=== PATIENT | male | born 1985 | race Two or more races ===

== ENCOUNTER → 2023-01-09 | Outpatient (BNVA) | payer BC, SELFPAY | END | disposition home or self-care (01) | PROVIDERS: PCP Family Medicine; Referring Provider Family Medicine; Visit Provider Physician Assistant | DX: N40.1 Benign prostatic hyperplasia with lower urinary tract symptoms (principal); N32.81 Overactive bladder | CPT/HCPCS: Q3014 ==

== ENCOUNTER → 2024-01-22 | Outpatient (CLI) | payer BC, SELFPAY ==
[2024-01-22 17:30] LABS: Basophils % (Auto) 1 % (0-2.5); Eosinophils % (Auto) 1 % (0-10); Hematocrit 35.1 % (41.0-53.0); Hemoglobin 11.5 g/dL (13.5-16.0); Immature Granulocytes % (Auto) 1 % (0-0); Immature Granulocytes Auto 0.01 Thou/mm3 (0.00-0.00); Lymphocytes # (Auto) 0.5 Thou/mm3 (1.0-4.8); Lymphocytes % (Auto) 23 % (10-50); Mean Corpuscular HGB Conc 32.8 g/dl (31.0-37.0); Mean Corpuscular Hemoglobin 33.3 pg (25.0-35.0); Mean Corpuscular Volume 102 fL (80-100); Monocytes # (Auto) 0.2 Thou/mm3 (0.0-0.8); Monocytes % (Auto) 8 % (0-12); Neutrophils # (Auto) 1.4 Thou/mm3 (1.8-7.7); Neutrophils % (Auto) 66 % (37-80); Nucleated Red Blood Cell % 0 /100 WBC (0); Platelet Count 101 Thou/mm3 (140-440); RDW Standard Deviation 60.6 fL (35.1-43.9); Red Blood Count 3.45 Miln/mm3 (4.50-5.90)
[2024-01-22 17:42] LABS: Alanine Aminotransferase 78 U/L (10-49); Albumin, Serum 3.8 gm/dL (3.5-5.0); Albumin/Globulin Ratio 0.9 (1.2-2.2); Alkaline Phosphatase 102 U/L (46-116); Anion Gap 5 (7-16); Aspartate Amino Transferase 64 U/L (0-34); BUN/Creatinine Ratio 13 Ratio (12-20); Bilirubin,Total 0.5 mg/dL (0.3-1.2); Blood Urea Nitrogen 10 mg/dL (9-23); Calcium 8.7 mg/dL (8.3-10.6); Calcium (Corrected) 8.9 mg/dL (8.5-10.1); Carbon Dioxide 26.9 mMol/L (20.0-31.0); Chloride 104 mMol/L (98-107); Creatinine (Component) 0.8 mg/dL (0.6-1.3); Globulin 4.4 gm/dL (2.3-3.5); Glucose 127 mg/dL (74-106); Osmolality,Calculated 272 (275-295); Potassium 3.8 mMol/L (3.4-5.1); Sodium 136 mMol/L (136-145); Total Protein 8.2 gm/dL (5.7-8.2); eGFR > 60 See Note
[2024-01-22 17:46] LABS: Folate 11.79 ng/mL (>5.38); Vitamin B12 512 pg/mL (211-911); White Blood Count 2.1 Thou/mm3 (3.8-10.6)
[2024-01-22 18:42] LABS: Ferritin 185 ng/mL (10.5-307.3); Total Iron Binding Capacity 310 mcg/dL (250-425)
[2024-01-22 18:51] LABS: Iron 124 mcg/dL (65-175); Percent Iron Saturation 40 % (20-55); Unsaturated Iron Binding 186 (225-295)
== END | disposition home or self-care (01) ==
LOC: SCTO 16:07
PROVIDERS: PCP Family Medicine; Referring Provider Internal Medicine Hematology & Oncology; Visit Provider Internal Medicine Hematology & Oncology
DX: R79.0 Abnormal level of blood mineral (principal)
CPT/HCPCS: 36415; 80053; 82607; 82728; 82746; 83540; 83550; 85025

== ENCOUNTER 2024-01-23 15:42 | Outpatient (RCR) | payer BC, SELFPAY | END 2024-02-16 23:59 | disposition home or self-care (01) | LOC: SCTC 15:42 | PROVIDERS: PCP Family Medicine; Referring Provider Nurse Practitioner Family; Visit Provider Nurse Practitioner Family | DX: R94.5 Abnormal results of liver function studies (principal); R79.0 Abnormal level of blood mineral; R04.0 Epistaxis; R12 Heartburn; E66.9 Obesity, unspecified; Z68.41 Body mass index [BMI] 40.0-44.9, adult; F10.10 Alcohol abuse, uncomplicated | CPT/HCPCS: 99212; G0463 ==

== ENCOUNTER → 2024-02-11 | Outpatient (CLI) | payer BC, SELFPAY ==
--- NOTE | 2024-02-11 07:15 | XR_ITS ---
Examination: Abdomen sonogram, complete Date and time of exam: February 11, 2024 0729 hours INDICATIONS: Right upper abdominal pain beginning 6 months ago. Technique: Multiple real-time grayscale transabdominal sonographic images of the abdomen have been obtained. Findings: Negative for gallstones Gallbladder wall 0.4 cm no edema Common bile duct 0.2 cm Pancreatic head 4.2 cm Mid and distal aorta visualized not enlarged Hepatomegaly 19.6 cm fatty infiltration mildly lobular contour Normal hepatopedal portal venous flow Patent IVC Right kidney 12.1 x 6.5 x 6.0 cm cortex 1.9 cm Left kidney 14.0 x 5.5 x 5.5 cm cortex 2.0 cm Mild renal parenchymal scar formation Splenomegaly 19.7 cm IMPRESSION: Borderline thickening gallbladder wall, clinical correlation advised Prominent pancreatic head 4.2 cm, consider CT scan abdomen pelvis post intravenous contrast follow-up Suspicious for cirrhosis Prominent splenomegaly
== END | disposition home or self-care (01) ==
LOC: CDIM 07:02
PROVIDERS: PCP Internal Medicine; Referring Provider Nurse Practitioner Family; Visit Provider Nurse Practitioner Family
DX: K82.8 Other specified diseases of gallbladder (principal); R16.1 Splenomegaly, not elsewhere classified; K86.89 Other specified diseases of pancreas
CPT/HCPCS: 76700

== ENCOUNTER → 2024-02-26 | Outpatient (CLI) | payer BC, SELFPAY ==
[2024-02-26 17:37] LABS: Basophils % (Auto) 1 % (0-2.5); Eosinophils % (Auto) 0 % (0-10); Hematocrit 33.7 % (41.0-53.0); Hemoglobin 11.3 g/dL (13.5-16.0); Immature Granulocytes % (Auto) 1 % (0-0); Immature Granulocytes Auto 0.02 Thou/mm3 (0.00-0.00); Lymphocytes # (Auto) 0.4 Thou/mm3 (1.0-4.8); Lymphocytes % (Auto) 20 % (10-50); Mean Corpuscular HGB Conc 33.5 g/dl (31.0-37.0); Mean Corpuscular Hemoglobin 33.3 pg (25.0-35.0); Mean Corpuscular Volume 99 fL (80-100); Monocytes # (Auto) 0.2 Thou/mm3 (0.0-0.8); Monocytes % (Auto) 9 % (0-12); Neutrophils # (Auto) 1.4 Thou/mm3 (1.8-7.7); Neutrophils % (Auto) 68 % (37-80); Nucleated Red Blood Cell % 0 /100 WBC (0); Platelet Count 84 Thou/mm3 (140-440); RDW Standard Deviation 59.3 fL (35.1-43.9); Red Blood Count 3.39 Miln/mm3 (4.50-5.90)
[2024-02-26 18:02] LABS: Alanine Aminotransferase 91 U/L (10-49); Albumin, Serum 3.8 gm/dL (3.5-5.0); Albumin/Globulin Ratio 0.9 (1.2-2.2); Alkaline Phosphatase 100 U/L (46-116); Anion Gap 6 (7-16); Aspartate Amino Transferase 77 U/L (0-34); BUN/Creatinine Ratio 10 Ratio (12-20); Bilirubin,Total 0.6 mg/dL (0.3-1.2); Blood Urea Nitrogen 12 mg/dL (9-23); Calcium 8.8 mg/dL (8.3-10.6); Chloride 102 mMol/L (98-107); Creatinine (Component) 1.2 mg/dL (0.6-1.3); Globulin 4.2 gm/dL (2.3-3.5); Glucose 112 mg/dL (74-106); Osmolality,Calculated 270 (275-295); Potassium 3.9 mMol/L (3.4-5.1); Sodium 135 mMol/L (136-145); eGFR > 60 See Note
== END | disposition home or self-care (01) ==
LOC: SCTO 16:10
PROVIDERS: PCP Internal Medicine; Referring Provider Nurse Practitioner Family; Visit Provider Nurse Practitioner Family
DX: R79.0 Abnormal level of blood mineral (principal)
CPT/HCPCS: 36415; 80053; 82105; 85025

== ENCOUNTER 2024-02-28 15:34 | Outpatient (RCR) | payer BC, SELFPAY | END 2024-03-18 23:59 | disposition home or self-care (01) | LOC: SCTC 15:34 | PROVIDERS: PCP Internal Medicine; Referring Provider Internal Medicine; Visit Provider Nurse Practitioner Family | DX: R94.5 Abnormal results of liver function studies (principal); R79.0 Abnormal level of blood mineral; R04.0 Epistaxis; R12 Heartburn; E66.9 Obesity, unspecified; Z68.41 Body mass index [BMI] 40.0-44.9, adult; F10.10 Alcohol abuse, uncomplicated | CPT/HCPCS: 99212; G0463 ==

== ENCOUNTER → 2024-04-02 | Outpatient (CLI) | payer BC, SELFPAY ==
[2024-04-02 17:02] LABS: Glucose Estimated Average 134 mg/dL (80-131); Hemoglobin A1C 6.3 % Hgb (4.8-6.0)
[2024-04-02 17:13] LABS: Albumin, Serum 3.7 gm/dL (3.5-5.0); Anion Gap 8 (7-16); BUN/Creatinine Ratio 13 Ratio (12-20); Blood Urea Nitrogen 10 mg/dL (9-23); Calcium 8.8 mg/dL (8.3-10.6); Carbon Dioxide 25.3 mMol/L (20.0-31.0); Chloride 105 mMol/L (98-107); Creatinine (Component) 0.8 mg/dL (0.6-1.3); Glucose 121 mg/dL (74-106); Osmolality,Calculated 275 (275-295); Phosphorous 2.6 mg/dL (2.4-5.1); Potassium 3.8 mMol/L (3.4-5.1); Sodium 138 mMol/L (136-145); eGFR > 60 See Note
== END | disposition home or self-care (01) ==
LOC: COPL 15:54
PROVIDERS: PCP Internal Medicine; Referring Provider Internal Medicine; Visit Provider Internal Medicine
DX: Z00.00 Encounter for general adult medical examination without abnormal findings (principal); E66.9 Obesity, unspecified
CPT/HCPCS: 36415; 80069; 83036

== ENCOUNTER → 2024-04-10 | Outpatient (CLI) | payer BC, SELFPAY ==
--- NOTE | 2024-04-10 10:30 | XR_ITS ---
Examination: CT abdomen with intravenous contrast CT pelvis with intravenous contrast 2-D coronal reconstructions 2-D sagittal reconstructions Date and time of exam:April 10, 2024 1036 hours INDICATIONS: Abnormal level of blood minimal, right upper abdominal pain one year COMPARISON: June 01, 2022. CTDI: vol (mGy) 12.5 DLP: (mGycm) 899 Technique: Multiple axial sections of the abdomen and pelvis have been obtained. 64 slice high-resolution scanner used. 3 mm axial sections have been obtained, post intravenous injection 60 cc [id number]-370 2-D sagittal, coronal reconstructions obtained. Low dose protocols were performed. One or more of the following dose reduction techniques were used; automated exposure control, adjustment of the mA and/or KV according to patient size, use of iterative reconstruction technique. Findings: Liver mildly irregular in contour Prominent splenomegaly No gallstones No pancreatic or adrenal mass No renal or ureteral calculi, no hydronephrosis Aorta normal size No pericecal inflammatory change No bowel obstruction or diverticulitis Urinary bladder intact No prostatomegaly Moderate osteopenia IMPRESSION: Primary hepatocellular disease Prominent splenomegaly No abdominal or pelvic lymphadenopathy
== END | disposition home or self-care (01) ==
PROVIDERS: PCP Internal Medicine; Referring Provider Internal Medicine; Visit Provider Nurse Practitioner Family
DX: K76.9 Liver disease, unspecified (principal); R16.1 Splenomegaly, not elsewhere classified
CPT/HCPCS: 74177; A4649; Q9967

== ENCOUNTER → 2024-04-15 | Outpatient (CLI) | payer BC, SELFPAY ==
[2024-04-15 17:47] LABS: INR 1.1 (0.9-1.3); Prothrombin Time 12.3 Seconds (9.0-12.2)
[2024-04-15 18:20] LABS: Alanine Aminotransferase 57 U/L (10-49); Albumin, Serum 4.1 gm/dL (3.5-5.0); Alkaline Phosphatase 107 U/L (46-116); Aspartate Amino Transferase 45 U/L (0-34); Bilirubin,Direct 0.3 mg/dL (0.0-0.3); Bilirubin,Total 0.6 mg/dL (0.3-1.2); Total Protein 8.6 gm/dL (5.7-8.2)
[2024-04-15 19:00] LABS: Hepatitis A Antibody IgM Non Reactive (Non React); Hepatitis B Surface Antigen Non Reactive (Non React)
[2024-04-15 19:02] LABS: Hepatitis B Core Antibody IgM Non Reactive (Non React); Hepatitis C Antibody Non Reactive (Non React)
[2024-04-15 20:05] LABS: Ferritin 163 ng/mL (10.5-307.3); Iron 145 mcg/dL (65-175); Percent Iron Saturation 43 % (20-55); Total Iron Binding Capacity 335 mcg/dL (250-425); Unsaturated Iron Binding 190 (225-295)
[2024-04-21 06:39] LABS: ACTH, Plasma* 16 pg/mL (6-50)
[2024-04-24 06:57] LABS: ANA Screen, IFA NEGATIVE (NEGATIVE)
[2024-04-24 06:58] LABS: Alpha-1-Antitrypsin* 151 mg/dL (83-199); Ceruloplasmin* 18 mg/dL (14-30); Copper* 82 mcg/dL (70-175); Mitochondrial Ab NEGATIVE (NEGATIVE)
== END | disposition home or self-care (01) ==
LOC: COPL 16:50
PROVIDERS: PCP Internal Medicine; Referring Provider Specialist; Visit Provider Specialist
DX: R94.5 Abnormal results of liver function studies (principal)
CPT/HCPCS: 36415; 80074; 80076; 82024; 82103; 82105; 82390; 82525; 82728; 83540; 83550; 85610; 86038; 86255

== ENCOUNTER → 2024-05-06 | Outpatient (CLI) | payer BC, SELFPAY ==
[2024-05-06 18:41] LABS: Basophils % (Auto) 0 % (0-2.5); Eosinophils % (Auto) 0 % (0-10); Hemoglobin 11.2 g/dL (13.5-16.0); Immature Granulocytes % (Auto) 1 % (0-0); Immature Granulocytes Auto 0.02 Thou/mm3 (0.00-0.00); Immature Reticulocyte Fraction 30.7 % (2.3-13.4); Lymphocytes # (Auto) 0.7 Thou/mm3 (1.0-4.8); Lymphocytes % (Auto) 28 % (10-50); Mean Corpuscular HGB Conc 33.9 g/dl (31.0-37.0); Mean Corpuscular Hemoglobin 33.2 pg (25.0-35.0); Mean Corpuscular Volume 98 fL (80-100); Monocytes # (Auto) 0.2 Thou/mm3 (0.0-0.8); Monocytes % (Auto) 7 % (0-12); Neutrophils # (Auto) 1.5 Thou/mm3 (1.8-7.7); Neutrophils % (Auto) 64 % (37-80); Nucleated Red Blood Cell % 0 /100 WBC (0); Platelet Count 109 Thou/mm3 (140-440); RDW Standard Deviation 60.5 fL (35.1-43.9); Red Blood Count 3.37 Miln/mm3 (4.50-5.90); Reticulocyte % (Auto) 3.2 % (0.5-1.5); Reticulocyte Absolute Auto 108.2 Biln/L (25.0-75.0); Reticulocyte Hgb Content 36.8 pg (28.0-35.0)
[2024-05-06 18:54] LABS: Alanine Aminotransferase 62 U/L (10-49); Albumin, Serum 3.5 gm/dL (3.5-5.0); Albumin/Globulin Ratio 0.8 (1.2-2.2); Alkaline Phosphatase 100 U/L (46-116); Anion Gap 10 (7-16); Aspartate Amino Transferase 44 U/L (0-34); BUN/Creatinine Ratio 13 Ratio (12-20); Bilirubin,Total 0.6 mg/dL (0.3-1.2); Blood Urea Nitrogen 12 mg/dL (9-23); Calcium 8.6 mg/dL (8.3-10.6); Carbon Dioxide 23.1 mMol/L (20.0-31.0); Chloride 104 mMol/L (98-107); Creatinine (Component) 0.9 mg/dL (0.6-1.3); Globulin 4.3 gm/dL (2.3-3.5); Glucose 173 mg/dL (74-106); Osmolality,Calculated 277 (275-295); Potassium 3.6 mMol/L (3.4-5.1); Sodium 137 mMol/L (136-145); Total Protein 7.8 gm/dL (5.7-8.2); eGFR > 60 See Note
[2024-05-06 18:55] LABS: Folate 10.82 ng/mL (>5.38); Vitamin B12 518 pg/mL (211-911)
[2024-05-06 19:07] LABS: White Blood Count 2.3 Thou/mm3 (3.8-10.6)
[2024-05-06 19:44] LABS: Ferritin 163 ng/mL (10.5-307.3); Iron 104 mcg/dL (65-175); Percent Iron Saturation 33 % (20-55); Total Iron Binding Capacity 308 mcg/dL (250-425); Unsaturated Iron Binding 204 (225-295)
== END | disposition home or self-care (01) ==
PROVIDERS: PCP Internal Medicine; Referring Provider Nurse Practitioner Family; Visit Provider Nurse Practitioner Family
DX: R79.0 Abnormal level of blood mineral (principal)
CPT/HCPCS: 36415; 80053; 82607; 82728; 82746; 83540; 83550; 85025; 85046

== ENCOUNTER 2024-05-12 15:32 | Outpatient (RCR) | payer BC, SELFPAY | END 2024-05-16 23:59 | disposition home or self-care (01) | LOC: SCTC 15:32 | PROVIDERS: PCP Internal Medicine; Referring Provider Internal Medicine; Visit Provider Nurse Practitioner Family | DX: Z71.2 Person consulting for explanation of examination or test findings (principal); D75.9 Disease of blood and blood-forming organs, unspecified; D72.819 Decreased white blood cell count, unspecified; D64.9 Anemia, unspecified; D69.6 Thrombocytopenia, unspecified; K70.0 Alcoholic fatty liver; R16.1 Splenomegaly, not elsewhere classified; F10.10 Alcohol abuse, uncomplicated; F14.11 Cocaine abuse, in remission | CPT/HCPCS: 99212; G0463 ==

== ENCOUNTER 2024-05-19 07:55 | Day surgery (SDC) | payer BC, SELFPAY ==
--- NOTE | 2024-05-16 11:56 | EKG_ITS ---
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
[2024-05-16 13:29] LABS: INR 1.1 (0.9-1.3); Partial Thromboplastin Time 28.4 Seconds (22.0-36.0); Prothrombin Time 12.1 Seconds (9.0-12.2)
[2024-05-16 13:30] LABS: Alanine Aminotransferase 45 U/L (10-49); Albumin, Serum 3.7 gm/dL (3.5-5.0); Albumin/Globulin Ratio 0.9 (1.2-2.2); Alkaline Phosphatase 96 U/L (46-116); Anion Gap 8 (7-16); Aspartate Amino Transferase 48 U/L (0-34); BUN/Creatinine Ratio 16 Ratio (12-20); Bilirubin,Total 0.7 mg/dL (0.3-1.2); Blood Urea Nitrogen 13 mg/dL (9-23); Calcium 8.6 mg/dL (8.3-10.6); Calcium (Corrected) 8.8 mg/dL (8.5-10.1); Carbon Dioxide 24.2 mMol/L (20.0-31.0); Chloride 107 mMol/L (98-107); Creatinine (Component) 0.8 mg/dL (0.6-1.3); Globulin 4.2 gm/dL (2.3-3.5); Glucose 119 mg/dL (74-106); Osmolality,Calculated 278 (275-295); Sodium 139 mMol/L (136-145); Total Protein 7.9 gm/dL (5.7-8.2); eGFR > 60 See Note
[2024-05-16 13:44] VITALS: BMI 41.8
[2024-05-19 08:27] VITALS: BP 139/78; PULSE 83; RESP 15; TEMP 36.4; O2SAT 98; BMI 42.0
[2024-05-19] MEDS: RINGERS LACTATED 1000 ML 1,000 ML 20 ML IV (09:46)
[2024-05-19 10:14] VITALS: BP 139/90; PULSE 94; RESP 20; TEMP 37; O2SAT 93
[2024-05-19 10:24] VITALS: BP 122/84; PULSE 87; RESP 21; O2SAT 95
[2024-05-19 10:34] VITALS: BP 124/84; PULSE 86; RESP 20; O2SAT 96
[2024-05-19 10:44] VITALS: BP 129/83; PULSE 83; RESP 21; O2SAT 98
--- NOTE | 2024-05-19 11:29 | SUR.PHASEII ---
1045 Pt more awake and alert. Denies pain, N/V or difficulty swallowing. Abd remains soft. Cleve PO fluids. 1110 Pt assessment unchanged. No complaints. Amb with steady gait. Able to dress self. Pt and sister given dc instructions. Aware of new prescriptions, phoned into [facility], by Dr Yu. Both state understanding. Pt meets dc criteria-to home.
== END 2024-05-19 11:10 | disposition home or self-care (01) ==
PROVIDERS: PCP Internal Medicine; Referring Provider Specialist; Visit Provider Specialist
PROC: (CPT 43239; principal; 2024-05-19 09:00)
DX: I85.10 Secondary esophageal varices without bleeding (principal); K29.70 Gastritis, unspecified, without bleeding; Z01.812 Encounter for preprocedural laboratory examination; K74.60 Unspecified cirrhosis of liver
CPT/HCPCS: 43244; 36415; 80053; 85610; 85730; 93005; A4649; J7120

== ENCOUNTER 2024-06-30 09:00 | Day surgery (SDC) | payer BC, SELFPAY ==
[2024-06-27 14:41] VITALS: BMI 40.8
[2024-06-30] VITALS (9 sets, daily range): BP systolic 120–143; BP diastolic 66–88; PULSE 73–91; RESP 14–21; TEMP 36.4–36.6; O2SAT 95–100; BMI 40.8
[2024-06-30] MEDS: fentaNYL CIT INJ 50 mCg/ML AMP 2ML (ASD USE ONLY) IV (11:14)
[2024-06-30] MEDS: SODIUM CHLORIDE 0.9% 500 ML 500 ML 20 ML IV (11:14)
[2024-06-30] MEDS: MIDAZOLAM INJ 1 MG/ML VIAL 2 ML (ASD USE ONLY) 2 MG IV (11:14)
[2024-06-30] MEDS: DiphenhydrAMINE INJ 50 MG/ML VIAL 25 MG IV (11:14)
== END 2024-06-30 12:45 | disposition home or self-care (01) ==
PROVIDERS: PCP Internal Medicine; Referring Provider Specialist; Visit Provider Specialist
PROC: (CPT 43239; principal; 2024-06-30 11:00)
DX: I85.00 Esophageal varices without bleeding (principal); K76.6 Portal hypertension; I85.10 Secondary esophageal varices without bleeding; K70.9 Alcoholic liver disease, unspecified; D69.59 Other secondary thrombocytopenia
CPT/HCPCS: 43244; A4649; J1200; J2250; J3010; J7040

== ENCOUNTER 2024-07-02 12:06 | Outpatient (RCR) | payer BC, SELFPAY ==
--- NOTE | 2024-07-02 12:30 | XR_ITS ---
Examination: GAYE, hepatobiliary radioisotope scan Gallbladder ejection fraction study. Date and time of exam: July 02, 2024 1222 hours INDICATIONS: Upper abdominal pain beginning 18 months ago heartburn reflux Technique: 6.2 mCi of 99M Hepatolite administered. Serial imaging then obtained from immediate through 60 minutes. 2.8 mcg selective catheter Kinevac administered for gallbladder ejection fraction study. Findings: Radioisotope activity within the liver is reasonably homogenous. Gallbladder, common bile duct small bowel activity noted Impression: Gallbladder activity Abnormal gallbladder ejection fraction, 10%, normal greater than 35%
== END 2024-07-07 23:59 | disposition home or self-care (01) ==
LOC: SNUC 12:06
PROVIDERS: PCP Internal Medicine; Referring Provider Specialist; Visit Provider Specialist
DX: R93.2 Abnormal findings on diagnostic imaging of liver and biliary tract (principal)
CPT/HCPCS: 78227; A9537; J2805

== ENCOUNTER → 2024-07-09 | Outpatient (CLI) | payer BC, SELFPAY ==
[2024-07-09 17:59] LABS: Basophils % (Auto) 1 % (0-2.5); Eosinophils % (Auto) 0 % (0-10); Hematocrit 33.4 % (41.0-53.0); Hemoglobin 11.1 g/dL (13.5-16.0); Immature Granulocytes % (Auto) 1 % (0-0); Immature Granulocytes Auto 0.01 Thou/mm3 (0.00-0.00); Immature Reticulocyte Fraction 18.8 % (2.3-13.4); Lymphocytes # (Auto) 0.5 Thou/mm3 (1.0-4.8); Lymphocytes % (Auto) 28 % (10-50); Mean Corpuscular HGB Conc 33.2 g/dl (31.0-37.0); Mean Corpuscular Hemoglobin 33.3 pg (25.0-35.0); Mean Corpuscular Volume 100 fL (80-100); Monocytes # (Auto) 0.2 Thou/mm3 (0.0-0.8); Monocytes % (Auto) 12 % (0-12); Neutrophils # (Auto) 1.1 Thou/mm3 (1.8-7.7); Neutrophils % (Auto) 60 % (37-80); Nucleated Red Blood Cell % 0 /100 WBC (0); Platelet Count 96 Thou/mm3 (140-440); RDW Standard Deviation 62.1 fL (35.1-43.9); Red Blood Count 3.33 Miln/mm3 (4.50-5.90); Reticulocyte % (Auto) 2.8 % (0.5-1.5); Reticulocyte Absolute Auto 91.6 Biln/L (25.0-75.0); Reticulocyte Hgb Content 36.1 pg (28.0-35.0)
[2024-07-09 18:04] LABS: Alanine Aminotransferase 42 U/L (10-49); Albumin, Serum 3.7 gm/dL (3.5-5.0); Albumin/Globulin Ratio 0.9 (1.2-2.2); Alkaline Phosphatase 95 U/L (46-116); Anion Gap 5 (7-16); Aspartate Amino Transferase 38 U/L (0-34); BUN/Creatinine Ratio 13 Ratio (12-20); Bilirubin,Total 0.8 mg/dL (0.3-1.2); Blood Urea Nitrogen 12 mg/dL (9-23); Calcium 8.4 mg/dL (8.3-10.6); Calcium (Corrected) 8.6 mg/dL (8.5-10.1); Carbon Dioxide 24.8 mMol/L (20.0-31.0); Chloride 110 mMol/L (98-107); Creatinine (Component) 0.9 mg/dL (0.6-1.3); Globulin 4.2 gm/dL (2.3-3.5); Glucose 88 mg/dL (74-106); Osmolality,Calculated 278 (275-295); Sodium 140 mMol/L (136-145); Total Protein 7.9 gm/dL (5.7-8.2); eGFR > 60 See Note
[2024-07-09 18:09] LABS: Folate 12.33 ng/mL (>5.38); Vitamin B12 432 pg/mL (211-911)
[2024-07-09 18:18] LABS: Ferritin 155 ng/mL (10.5-307.3); Iron 129 mcg/dL (65-175); Percent Iron Saturation 42 % (20-55); Total Iron Binding Capacity 303 mcg/dL (250-425); Unsaturated Iron Binding 174 (225-295)
[2024-07-09 18:20] LABS: White Blood Count 1.8 Thou/mm3 (3.8-10.6)
== END | disposition home or self-care (01) ==
LOC: SCTO 15:51
PROVIDERS: PCP Internal Medicine; Referring Provider Nurse Practitioner Family; Visit Provider Nurse Practitioner Family
DX: R79.0 Abnormal level of blood mineral (principal)
CPT/HCPCS: 36415; 80053; 82105; 82607; 82728; 82746; 83540; 83550; 85025; 85046

== ENCOUNTER 2024-07-10 15:54 | Outpatient (RCR) | payer BC, SELFPAY | END 2024-07-16 23:59 | disposition home or self-care (01) | LOC: SCTC 15:54 | PROVIDERS: PCP Internal Medicine; Referring Provider Internal Medicine; Visit Provider Nurse Practitioner Family | DX: R79.0 Abnormal level of blood mineral (principal); K70.0 Alcoholic fatty liver; F10.10 Alcohol abuse, uncomplicated; R12 Heartburn; R16.1 Splenomegaly, not elsewhere classified; E66.9 Obesity, unspecified; Z68.41 Body mass index [BMI] 40.0-44.9, adult | CPT/HCPCS: 99212; G0463 ==

== ENCOUNTER → 2024-08-05 | Outpatient (CLI) | payer BC, SELFPAY ==
[2024-08-05 08:10] LABS: Collection Type, Urine Clean Catch; Squamous Epithelial Cell,Urine 0 /hpf (0-5)
[2024-08-05 08:43] LABS: Basophils % (Auto) 1 % (0-2.5); Eosinophils % (Auto) 0 % (0-10); Hemoglobin 10.8 g/dL (13.5-16.0); Immature Granulocytes % (Auto) 1 % (0-0); Immature Granulocytes Auto 0.01 Thou/mm3 (0.00-0.00); Lymphocytes # (Auto) 0.3 Thou/mm3 (1.0-4.8); Lymphocytes % (Auto) 23 % (10-50); Mean Corpuscular HGB Conc 33.8 g/dl (31.0-37.0); Mean Corpuscular Hemoglobin 34.6 pg (25.0-35.0); Mean Corpuscular Volume 103 fL (80-100); Monocytes # (Auto) 0.2 Thou/mm3 (0.0-0.8); Monocytes % (Auto) 11 % (0-12); Neutrophils # (Auto) 0.9 Thou/mm3 (1.8-7.7); Neutrophils % (Auto) 65 % (37-80); Nucleated Red Blood Cell % 0 /100 WBC (0); RDW Standard Deviation 63.5 fL (35.1-43.9); Red Blood Count 3.12 Miln/mm3 (4.50-5.90)
[2024-08-05 08:44] LABS: Platelet Count 74 Thou/mm3 (140-440); White Blood Count 1.4 Thou/mm3 (3.8-10.6)
[2024-08-05 08:47] LABS: Glucose Estimated Average 114 mg/dL (80-131); Hemoglobin A1C 5.6 % Hgb (4.8-6.0)
[2024-08-05 08:49] LABS: Bilirubin,Urine Negative (Negative); Blood,Urine Negative (Negative); Clarity,Urine Clear (Clear/Hazy); Color,Urine Lt-Yellow (Lt Yel-Yel); Glucose, Urine Negative (Negative); Ketones,Urine Negative (Negative); Leukocyte Esterase,Urine Negative (Negative); Nitrite,Urine Negative (Negative); Protein,Urine Negative (Neg - Trace); RBC,Urine 2 /hpf (0-3); Specific Gravity,Urine 1.024 (1.001-1.035); WBC,Urine < 1 /hpf (0-5)
[2024-08-05 09:04] LABS: Vitamin B12 383 pg/mL (211-911); Vitamin D 25 Hydroxy Total 27.8 ng/mL (7.3-40.2)
[2024-08-05 09:08] LABS: Alanine Aminotransferase 32 U/L (10-49); Albumin, Serum 3.6 gm/dL (3.5-5.0); Albumin/Globulin Ratio 0.9 (1.2-2.2); Alkaline Phosphatase 85 U/L (46-116); Anion Gap 7 (7-16); Aspartate Amino Transferase 33 U/L (0-34); BUN/Creatinine Ratio 13 Ratio (12-20); Bilirubin,Total 0.7 mg/dL (0.3-1.2); Blood Urea Nitrogen 12 mg/dL (9-23); Calcium 8.2 mg/dL (8.3-10.6); Calcium (Corrected) 8.5 mg/dL (8.5-10.1); Carbon Dioxide 26.1 mMol/L (20.0-31.0); Cardiac Risk Estimate 2.9 RATIO (4.0-6.7); Chloride 107 mMol/L (98-107); Cholesterol 90 mg/dL (132-200); Creatinine (Component) 0.9 mg/dL (0.6-1.3); Globulin 4.1 gm/dL (2.3-3.5); Glucose 119 mg/dL (74-106); HDL Cholesterol 31 mg/dL (40-60); LDL Cholesterol,Calculated 41 mg/dL (0-130); Osmolality,Calculated 280 (275-295); Sodium 140 mMol/L (136-145); Thyroid Stimulating Hormone 1.22 uIU/mL (0.55-4.78); Total Protein 7.7 gm/dL (5.7-8.2); Triglycerides 92 mg/dL (30-150); eGFR > 60 See Note
[2024-08-05 09:15] LABS: Slide Review Platelets confirmed
== END | disposition home or self-care (01) ==
LOC: COPL 07:17
PROVIDERS: PCP Internal Medicine; Referring Provider Internal Medicine; Visit Provider Internal Medicine
DX: Z00.00 Encounter for general adult medical examination without abnormal findings (principal)
CPT/HCPCS: 36415; 80053; 80061; 81001; 82306; 82607; 83036; 84443; 84550; 85025

== ENCOUNTER → 2024-08-18 | Outpatient (CLI) | payer BC, SELFPAY ==
[2024-08-18 08:15] LABS: Quantiferon-TB* See Sep Rpt
[2024-08-18 08:45] LABS: Basophils % (Auto) 1 % (0-2.5); Eosinophils % (Auto) 1 % (0-10); Hematocrit 34.5 % (41.0-53.0); Hemoglobin 11.5 g/dL (13.5-16.0); Immature Granulocytes % (Auto) 1 % (0-0); Immature Granulocytes Auto 0.01 Thou/mm3 (0.00-0.00); Lymphocytes # (Auto) 0.4 Thou/mm3 (1.0-4.8); Lymphocytes % (Auto) 24 % (10-50); Mean Corpuscular HGB Conc 33.3 g/dl (31.0-37.0); Mean Corpuscular Hemoglobin 33.5 pg (25.0-35.0); Mean Corpuscular Volume 101 fL (80-100); Monocytes # (Auto) 0.2 Thou/mm3 (0.0-0.8); Monocytes % (Auto) 9 % (0-12); Neutrophils # (Auto) 1.2 Thou/mm3 (1.8-7.7); Neutrophils % (Auto) 65 % (37-80); Nucleated Red Blood Cell % 0 /100 WBC (0); Platelet Count 83 Thou/mm3 (140-440); RDW Standard Deviation 60.4 fL (35.1-43.9); Red Blood Count 3.43 Miln/mm3 (4.50-5.90)
[2024-08-18 08:51] LABS: White Blood Count 1.8 Thou/mm3 (3.8-10.6)
[2024-08-18 17:15] LABS: Path Review Blood Smear Sent to Pathologist
== END | disposition home or self-care (01) ==
LOC: COPL 07:45
PROVIDERS: PCP Internal Medicine; Referring Provider Dermatology; Visit Provider Dermatology
DX: Z79.899 Other long term (current) drug therapy (principal)
CPT/HCPCS: 36415; 85025; 86480

== ENCOUNTER 2024-08-20 13:32 | Outpatient (RCR) | payer BC, SELFPAY ==
--- NOTE | 2024-08-20 15:15 | CTCFLWUP_ITS ---
Patient: CHUCKIE LANDIS : 1985 Page 2 of 3 FOLLOW UP NOTE DATE OF SERVICE: 08/20/2024 NAME: CHUCKIE LANDIS ACCOUNT: [id number] : 1985 AGE: 39 INTERVAL HISTORY: Subjective: Chief Complaint Low blood cell count, fatigue History of Present Illness Mr. Noguera presents for follow-up regarding low blood cell counts. He was referred by Dr. andry stanford due to concerns about his blood cell count being too low. The patient reports feeling tired, which he attributes to his condition. The patient has a history of liver disease, with fibrosis noted in his liver. He has been diagnosed with cirrhosis, which is attributed to a iron overlaod and alcohol use. Last drink was 3 months ago in 03/2024 . The patient's spleen is enlarged, and he experiences nosebleeds due to low platelet counts. Mr. Noguera reports a significant weight loss of 28 pounds with the use of Wegovy. He denies current alcohol consumption. The patient also notes a complete loss of libido and absence of morning erections for approximately 5 years, though he was sexually active prior to this change. Regarding lifestyle changes, Mr. Noguera has quit drinking alcohol as advised. He is not currently sexually active and does not have children or a girlfriend. Medications and Supplements - B12 - Folic acid - Vitamin D3 - Centrum Silver - Wegovy - Patient lost 28 pounds with this medication. Review of Systems General: Positive for fatigue, weight loss. Genitourinary: Negative for morning erections. Psychiatric: Positive for decreased libido. Objective: Physical Examination Abdomen: Spleen is enlarged. Liver is palpable, suggesting hepatomegaly. Laboratory, Imaging, and Diagnostic Test Results - Previous results: - CBC: Low red blood cell count, low white blood cell count - Ferritin: Elevated (>100) - Hemoglobin: High - Platelets: Low - MRI (2019): Fatty liver - HFE genetic test: Negative for hemochromatosis ONCOLOGY HISTORY:?[facility] Hx? Not applicable DIAGNOSIS: Abnormal liver function tests, elevated ferritin levels and alcohol abuse. Markedly increased iron deposition in the liver along with moderately increased fibrosis. HFE gene analysis negative for hemochromatosis. Had multiple therapeutic phlebotomies to decrease the iron load in the liver Continues to drink alcohol Hepatosplenomegaly documented on CT scan of the abdomen (06/01/2022) Cytopenias, leukopenia, anemia and mild thrombocytopenia probably secondary to hypersplenism Obesity INTERVAL HISTORY: PREVIOUS NOTE: Mr. Landis is here at [facility]. Patient also reports heartburn especially after eating, no previous endoscopies. Patient denies blood in stool denies black stools. History of obesity, BMI 42, 301 LB. Patient drinks a 12 pack of beer about 2-3 times a month and drinks about 10 cans of soda a day. Denies any cough, chest pain, abdominal pain or leg cramps. Ambulating well without any help. 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 HISTORY: Chuckie Landis is a 39-year-old Bulgarian-speaking male with history of elevated ferritin levels documented on 07/13/2017. Her labs drawn on the day showed his ferritin to be 1574. Upper limit of normal is 244. His AST and ALT were also elevated. Patient drinks alcohol heavily. Apparently he drinks 12 cans of beer at least 2-3 times a week. He is in the clinic today with repeat labs including HFE gene analysis. He is HFE gene analysis came back negative for hemochromatosis. His last labs were drawn on 11/02/2017. His AST is 105 ALT is 207. T bili is 0.5. His ferritin is 2001 with an iron saturation of 61%. 01/16/2018:. Since the last visit patient had a CT scan of the abdomen and pelvis done on 01/09/2018. CT scan showed fatty infiltration throughout the liver. No cirrhosis was evident. He continues to drink alcohol. Denies any history of smoking. He does have mild pain in the right upper quadrant. 05/02/2018: Patient is in the clinic today with repeat labs. Apparently since last visit patient has decreased his drinking. Currently he drinks every other week. Unfortunately he has a binge drinking habit. During last [employer] [place] 2 weeks ago he drank 30 pack of beer. Since last visit he also had rectal bleeding. 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 Patient is in the process of getting a colonoscopy. He denies any rectal bleeding or melena for last 1 week. His last labs were drawn on 04/25/2018. His AST has increased to 134 and ALT has increased to 217. T bili 0.5. His ferritin has increased to 2759 with iron saturation of 52%. 06/03/2018: Patient had ultrasound-guided liver biopsy Patient is started on therapeutic phlebotomies. 06/06/2018: AST 67, ALT 158 and T bili 0.5. Hepatitis panel negative. 01/13/2019: MRI of the abdomen with and without contrast mild diffuse hepatic steatosis. No liver lesions identified. Ferritin levels: 04/25/2018: 2759. 08/14/2018: 1864. 09/04/2018: 1504. 09/24/2018: 1631. 11/12/2018: 2066. 02/03/2019: 1764. 02/10/2019: 1238 02/11/2019: 300 ml of blood was removed. 02/25/2019: 350 mL of blood was removed. 04/22/2019: Patient had therapeutic phlebotomy. 350 mL of blood was removed. 05/07/2019: Ferritin is 1193. 05/20/2019: Patient had therapeutic phlebotomy. 350 mL of blood was removed. 07/31/2019: Patient had therapeutic phlebotomy. 350 mL of blood was removed. 12/14/2019?12/22/2019: COVID-19 pneumonia. Patient was admitted to [facility]. Treated with oxygen remdesivir as well as Decadron. 12/20/2019: Iron saturation 66%, ferritin 1687. 01/10/2021: Ferritin 587, iron saturation 40%, AST 62, ALT 96, alk phos 119, T bili 0.5, hemoglobin 12.2, MCV 106, WBC 3.9, platelets 172,000. Patient is continued on therapeutic phlebotomies. February 21, 2021: AST 58, ALT 83, ferritin 343, hemoglobin 11.2, MCV 105. 04/25/2021: Ferritin 128. 05/24/2021: Ferritin 112, iron saturation 21. 07/05/2021: Ferritin 52, iron saturation 27%. 09/27/2021 ferritin 127, iron saturation 32%. 02/06/2022: Ferritin 198, iron saturation 36% 05/18/2022: Abdominal ultrasound 06/01/2022: CT scan of the abdomen with and without contrast 06/13/2022: WBC 2.3, ANC 1.4, hemoglobin 11.3, MCV 98, platelets 125,000, AST 64, ALT 83, T. bili 0.6, iron saturation 35%, ferritin 78. 07/19/2022: Mr. Landis had therapeutic phlebotomy 08/08/2022: WBC 2.0, ANC 1.3, hemoglobin 10.6, MCV 99, platelets 122,000. 12/20/2022: WBC 2.2, ANC 1.4, hemoglobin 10.6, MCV 98, platelets 121,000, AST 62, ALT 75, T. bili 0.7, ferritin 129, iron saturation 34%, B12 468, folate 13.11, AFP 3.3. 01/25/2023: CT-guided bone marrow biopsy and aspiration done 03/29/2023: Ultrasound-guided liver biopsy? 05/03/2023: Iron saturation 51%, ferritin 83 09/18/2023: Iron saturation 41%, ferritin 164. BBC 2.3, ANC 1.5, hemoglobin 10.5, MCV 101, platelets 98,000. AST 64, ALT 70. 01/22/2024: Iron saturation 40%, ferritin 185, hemoglobin 11.5, MCV 102, ANC 1.4, platelets 101,000, AST 64, ALT 78 02/26/2024: Iron saturation 40%, ferritin 195, hemoglobin 11.3, MCV 99, ANC 1.4, platelets 84,000, AST 77, ALT 91, T. bili 0.6 DIAGNOSIS: Abnormal liver function tests, elevated ferritin levels and alcohol abuse. Markedly increased iron deposition in the liver along with moderately increased fibrosis. HFE gene analysis negative for hemochromatosis. Had multiple therapeutic phlebotomies to decrease the iron load in the liver Continues to drink alcohol Hepatosplenomegaly documented on CT scan of the abdomen (06/01/2022) Leukopenia, anemia and mild thrombocytopenia probably secondary to hypersplenism Obesity OTHER MEDICAL HISTORY/CONDITIONS: Obesity BMI 42, 301 L8 Drinks about 8 cans of soda a day. History of colon FAMILY HISTORY: ?Clone Family Hx? SOCIAL HISTORY: Drinks a 12 pack of beer once a week, previously was drinking 3 (12 packs) a week MEDICATIONS: 1. omeprazole - 20 mg 20 mg Daily?Palabra Meds? Medications Last Reconciled by Lula Villa MA on 08/20/2024 ALLERGIES: No Known Drug Allergies REVIEW OF SYSTEMS: A complete 14-point review of systems was performed and is negative except as noted in interval history. PHYSICAL EXAMINATION:?[facility] PE? VITAL SIGNS: PAIN: 0 - No pain ECOG Performance Status: 0 - Asymptomatic and fully active Neuro: Alert and oriented x 4 Conjunctiva white. Wearing glasses Chest clear to auscultation. No wheezes or rails audible. CV: Rhythm regular. Abdomen: Truncal obesity Extremities no clubbing or cyanosis. LABORATORY DATA: I have personally reviewed and interpreted each of the patient?s relevant lab tests, abnormal findings are below: Date 07/09/24 08/05/24 08/18/24 ??WHITE?BLOOD?COUNT?(Thou/mm3) ? 1.4?L 1.8?L ??RED?BLOOD?COUNT?(Miln/mm3) ? 3.12?L 3.43?L ??HEMOGLOBIN?(gm/dl) ? 10.8?L 11.5?L ??HEMATOCRIT?(%) ? 32.0?L 34.5?L ??PLATELET?COUNT?(Thou/mm3) ? 74?L 83?L ??NEUTROPHILS?%,?AUTO?(%) ? 65 65 ??LYMPH?%,?AUTO?(%) ? 23 24 ??NEUTROPHILS,?AUTO?(Thou/mm3) ? 0.9?L 1.2?L ??GLUCOSE,RANDOM?(mg/dL) ? 119?H ? ??BLOOD?UREA?NITROGEN?(mg/dL) ? 12 ? ??CREATININE?(mg/dL) ? 0.90 ? ??SODIUM?(mmol/L) ? 140 ? ??POTASSIUM?(mmol/L) ? 4.0 ? ??CHLORIDE?(mmol/L) ? 107 ? ??CrCl?(CandG)?(ml/min) ? 148.04 ? ??AST/SGOT?(Unit/L) ? 33 ? ??ALT/SGPT?(Unit/L) ? 32 ? ??ALKALINE?PHOSPHATASE?(Unit/L) ? 85 ? ??BILIRUBIN,?TOTAL?(mg/dL) ? 0.7 ? ??PROTEIN?TOTAL?(gm/dl) ? 7.7 ? ??ALBUMIN,?SERUM?(gm/dl) ? 3.6 ? ??GLOBULIN?(gm/dl) ? 4.1?H ? ??ALBUMIN/GLOBULIN?RATIO ? 0.9?L ? ??CALCIUM,?SERUM?(mg/dL) ? 8.2?L ? ??CALCIUM?SERUM?(CORRECTED)?(mg/dL) ? 8.5 ? ??TOTAL?IRON?BINDING?CAP?(S*)?(mcg/dL) 303 ?UNBOUND?IBC?(mcg/dL) 174?L ? ? ASSESSMENT/PLAN:?Piero Morse Assessment/Plan? 1. History of abnormal liver function tests, elevated ferritin levels and alcohol abuse. Markedly increased iron deposition in the liver along with moderately increased ?brosis. History of Hyperferritinnemia. HFE gene analysis negative for hemochromatosis. Had multiple therapeutic phlebotomies to decrease the iron load in the liver Patient had ultrasound-guided liver biopsy on 03/29/2023. Unfortunately this placement did not have any liver parenchyma. Patient declined to repeat liver biopsy Bone marrow biopsy and aspiration (01/25/2023) showed normocellular bone marrow. Iron storage is present without any ringed sideroblasts. Patient is trying to decrease alcohol intake, patient was previously drinking one 12 packs of beer once a week, drinking less now, unable to quantify. History of heavy drinking previously, previously was drinking 24 pack about every 3 days. History of cocaine abuse in the past. Cytopenias, Leukopenia, anemia and mild thrombocytopenia likely secondary to hypersplenism Hepatitis panel negative x2. Ultrasound of abdomen showed fatty liver, suspicious for cirrhosis, prominent splenomegaly, prominent pancreatic head consider CT abdomen pelvis with contrast, 02/11/2024. CT of abdomen shows primary hepatocellular disease, prominent splenomegaly, 04/10/[address] Yu, GI for suspicious for cirrhosis and complaints of heartburn, patient reports he recently had an EGD on 06/30/2024 was told he had varices, were banded. Next follow-up with Dr. Yu is on 07/17/2024 AFP 3.7 is 07/09/2024 Iron Overload (Suspected Hemochromatosis) Assessment: Patient initially suspected to have hemochromatosis due to high iron levels and low blood cell counts. However, HFE genetic test was negative for hemochromatosis. The iron overload is likely secondary to alcohol use, causing liver damage and cirrhosis. Patient reports fatigue, which may be related to this condition. Previous imaging (MRI in 2019) showed fatty liver. Patient has lost 28 pounds with Wegovy, which may have improved liver condition. Current ferritin levels are elevated, indicating iron overload persists. Plan: - Discontinue all iron supplements - Start daily B12 and folic acid supplements - Start vitamin D3 supplement - Consider Centrum Silver multivitamin (without iron) - Order fibroscan to evaluate cirrhosis progression - Repeat MRI to assess current liver fat content and iron levels - Refer to liver specialist at [place] for evaluation and possible liver transplant listing - Advise complete alcohol cessation - Follow up in two weeks to review results and specialist recommendations Thrombocytopenia Assessment: Patient reports experiencing nosebleeds, which are likely due to low platelet count (thrombocytopenia). The cause of thrombocytopenia is not clear but may be related to the underlying liver disease or potential bone marrow issues. Plan: - Order bone marrow biopsy to evaluate cause of low blood cell counts - Refer to Dr. anna chang in [place] for further evaluation and potential procedures Vitamin B12 Deficiency (Suspected) Assessment: Low blood cell counts may be partially attributed to B12 deficiency. This could be contributing to the patient's fatigue and hematological abnormalities. Plan: - Start B12 supplementation (to be ordered) - Monitor blood cell counts after initiating B12 therapy Sexual Dysfunction Assessment: Patient reports absence of libido for approximately 5 years, with no morning erections. This could be related to iron deposition in the testes, causing damage and hormonal imbalances. Plan: - Check hormone levels (testosterone ) - Reassess sexual function at follow-up appointment CBC CMP anemia panel AFP ORDERS: Order # Description [id number] AFP [id number] MRI + Abdomen + With W/O Contrast [id number] MD Follow Up 2 Months [id number] Vitamin B-12 + Folic Acid; Serum + Ferritin [id number] Testosterone; Total RETURN TO CLINIC: BILLING AND COMPLIANCE: I reviewed external records from providers outside my specialty as summarized above. I spent a total of 50 minutes on this patient?s care on the day of their visit excluding time spent related to any billed procedures. This time includes time spent with the patient as well as time spent documenting in the medical record, reviewing patients records and tests, obtaining history, placing orders, communicating with other healthcare professionals, counseling the patient, family or caregiver, and/or care coordination for the diagnoses above. Electronically Signed by: Noah Morse MD T: 3:12 PM CC: Rod?Lacey,? PCP: Rod Rahman Referring: Rod Rahman This document was completed utilizing speech recognition software. Grammatical errors, random word insertions, pronoun errors, and incomplete sentences are an occasional consequence of this system due to software limitations, ambient noise, and hardware issues. Any formal questions or concerns about the content, text or information contained within the body of this dictation should be directly addressed to the provider for clarification.
== END 2024-09-15 23:59 | disposition home or self-care (01) ==
LOC: SCTC 13:32
PROVIDERS: PCP Internal Medicine; Referring Provider Internal Medicine; Visit Provider Internal Medicine Hematology & Oncology
DX: D69.6 Thrombocytopenia, unspecified (principal); D73.1 Hypersplenism; K70.0 Alcoholic fatty liver; R53.83 Other fatigue; K74.00 Hepatic fibrosis, unspecified; E83.10 Disorder of iron metabolism, unspecified
CPT/HCPCS: 99212; G0463

== ENCOUNTER 2024-08-29 10:05 | Day surgery (SDC) | payer BC, SELFPAY ==
--- NOTE | 2024-08-28 10:32 | EKG_ITS ---
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
[2024-08-28 10:58] LABS: Alanine Aminotransferase 38 U/L (10-49); Albumin, Serum 3.6 gm/dL (3.5-5.0); Alkaline Phosphatase 80 U/L (46-116); Anion Gap 9 (7-16); BUN/Creatinine Ratio 14 Ratio (12-20); Bilirubin,Total 0.7 mg/dL (0.3-1.2); Blood Urea Nitrogen 11 mg/dL (9-23); Calcium 8.2 mg/dL (8.3-10.6); Calcium (Corrected) 8.5 mg/dL (8.5-10.1); Carbon Dioxide 24.8 mMol/L (20.0-31.0); Chloride 107 mMol/L (98-107); Creatinine (Component) 0.8 mg/dL (0.6-1.3); Globulin 3.7 gm/dL (2.3-3.5); Glucose 101 mg/dL (74-106); Osmolality,Calculated 280 (275-295); Potassium 4.1 mMol/L (3.4-5.1); Sodium 141 mMol/L (136-145); Total Protein 7.3 gm/dL (5.7-8.2); eGFR > 60 See Note
[2024-08-28 11:01] LABS: INR 1.1 (0.9-1.3); Partial Thromboplastin Time 28.3 Seconds (22.0-36.0); Prothrombin Time 12.2 Seconds (9.0-12.2)
[2024-08-28 11:56] LABS: HCG,Qualitative Serum Negative
[2024-08-29 10:35] VITALS: BP 126/71; PULSE 75; RESP 20; TEMP 36.9; O2SAT 98; BMI 40.0
[2024-08-29] MEDS: RINGERS LACTATED 1000 ML 1,000 ML 20 ML IV (11:33)
[2024-08-29 12:02] VITALS: BP 114/69; PULSE 99; RESP 20; TEMP 37.1; O2SAT 93
[2024-08-29 12:12] VITALS: BP 113/69; PULSE 80; RESP 20; O2SAT 95
[2024-08-29 12:22] VITALS: BP 109/75; PULSE 92; RESP 20; O2SAT 97
[2024-08-29 12:32] VITALS: BP 115/73; PULSE 83; RESP 19; O2SAT 96
== END 2024-08-29 12:55 | disposition home or self-care (01) ==
PROVIDERS: PCP Internal Medicine; Referring Provider Specialist; Visit Provider Specialist
PROC: (CPT 43239; principal; 2024-08-29 11:45)
DX: I85.10 Secondary esophageal varices without bleeding (principal); K74.60 Unspecified cirrhosis of liver; Z01.810 Encounter for preprocedural cardiovascular examination
CPT/HCPCS: 43244; 36415; 80053; 84703; 85610; 85730; 93005; A4649; J7120

== ENCOUNTER 2024-09-17 07:28 | Outpatient (CLI) | payer BC, SELFPAY ==
[2024-09-15 15:01] VITALS: BMI 39.3
[2024-09-15 17:34] LABS: INR 1.1 (0.9-1.3); Partial Thromboplastin Time 28.8 Seconds (22.0-36.0); Prothrombin Time 12.4 Seconds (9.0-12.2)
[2024-09-15 17:37] LABS: Basophils # (Auto) 0.0 Thou/mm3 (0.0-0.2); Basophils % (Auto) 0 % (0-2.5); Eosinophils # (Auto) 0.0 Thou/mm3 (0.0-0.5); Eosinophils % (Auto) 0 % (0-10); Hematocrit 33.3 % (41.0-53.0); Hemoglobin 11.4 g/dL (13.5-16.0); Immature Granulocytes Auto 0.02 Thou/mm3 (0.00-0.00); Lymphocytes # (Auto) 0.6 Thou/mm3 (1.0-4.8); Lymphocytes % (Auto) 19 % (10-50); Mean Corpuscular HGB Conc 34.2 g/dl (31.0-37.0); Mean Corpuscular Hemoglobin 33.7 pg (25.0-35.0); Mean Corpuscular Volume 99 fL (80-100); Monocytes # (Auto) 0.4 Thou/mm3 (0.0-0.8); Monocytes % (Auto) 11 % (0-12); Neutrophils # (Auto) 2.3 Thou/mm3 (1.8-7.7); Neutrophils % (Auto) 70 % (37-80); Nucleated Red Blood Cell # 0.00 Thou/mm3 (0.00-0.00); Nucleated Red Blood Cell % 0 /100 WBC (0); Platelet Count 83 Thou/mm3 (140-440); RDW Standard Deviation 61.1 fL (35.1-43.9); Red Blood Count 3.38 Miln/mm3 (4.50-5.90); White Blood Count 3.2 Thou/mm3 (3.8-10.6)
[2024-09-17] VITALS (10 sets, daily range): BP systolic 119–153; BP diastolic 66–93; PULSE 83–98; RESP 12–24; TEMP 36.3–36.9; O2SAT 96–100
--- NOTE | 2024-09-17 08:13 | XR_ITS ---
Examination: CT-guided percutaneous bone marrow aspiration right posterior superior iliac crest CT-guided percutaneous bone biopsy deep right posterior superior iliac crest CT pelvis without intravenous contrast Date and time of procedure: September 17, 2024 0932 hours INDICATIONS: Abnormal levels of blood in the inner lower, thrombocytopenia Informed consent provided. A timeout was completed verifying correct patient, procedure, site and positioning. Technique: Axial 3 mm sections were obtained for localization of the right posterior superior iliac crest Appropriate area is marked. The patient's site was prepped and draped in sterile fashion Maximal sterile barrier technique utilized, including hand hygiene Local anesthesia was obtained with 1% lidocaine. Low dose protocols were performed. One or more of the following dose reduction techniques were used; automated exposure control, adjustment of the mA and/or KV according to patient size, use of iterative reconstruction technique. Utilizing CT fluoroscopic guidance 14-gauge bone biopsy needle placed in the right posterior superior iliac crest 10 cc Scattered obtained 5 cm bone core obtained Patient appears in stable condition during this procedure. At completion of the procedure, the patient is in satisfactory condition. Estimated blood loss 2 cc Complete pathology report to follow. Impression: Successful CT-guided percutaneous bone marrow aspiration right posterior superior iliac crest Successful CT-guided percutaneous bone biopsy deep right posterior superior iliac crest
[2024-09-17] MEDS: fentaNYL CIT INJ 50 mCg/ML AMP 2ML 75 MCG IVP (09:48)
[2024-09-17 10:09] LABS: Flow Cytometry* See Sep Rpt
== END 2024-09-17 11:19 | disposition home or self-care (01) ==
PROVIDERS: Radiology Diagnostic Radiology; PCP Internal Medicine; Referring Provider Internal Medicine Hematology & Oncology; Visit Provider Internal Medicine Hematology & Oncology
DX: D64.89 Other specified anemias (principal); D75.89 Other specified diseases of blood and blood-forming organs; Z01.812 Encounter for preprocedural laboratory examination
CPT/HCPCS: 38221; 36415; 77012; 85025; 85610; 85730; J3010

== ENCOUNTER → 2024-09-30 | Outpatient (CLI) | payer BC, SELFPAY ==
[2024-09-30 17:29] LABS: Basophils # (Auto) 0.0 Thou/mm3 (0.0-0.2); Basophils % (Auto) 0 % (0-2.5); Eosinophils # (Auto) 0.0 Thou/mm3 (0.0-0.5); Eosinophils % (Auto) 0 % (0-10); Hematocrit 32.6 % (41.0-53.0); Hemoglobin 11.3 g/dL (13.5-16.0); Immature Granulocytes Auto 0.01 Thou/mm3 (0.00-0.00); Immature Reticulocyte Fraction 24.0 % (2.3-13.4); Lymphocytes # (Auto) 0.5 Thou/mm3 (1.0-4.8); Lymphocytes % (Auto) 21 % (10-50); Mean Corpuscular HGB Conc 34.7 g/dl (31.0-37.0); Mean Corpuscular Hemoglobin 33.8 pg (25.0-35.0); Mean Corpuscular Volume 98 fL (80-100); Monocytes # (Auto) 0.3 Thou/mm3 (0.0-0.8); Monocytes % (Auto) 10 % (0-12); Neutrophils # (Auto) 1.8 Thou/mm3 (1.8-7.7); Neutrophils % (Auto) 69 % (37-80); Nucleated Red Blood Cell # 0.00 Thou/mm3 (0.00-0.00); Nucleated Red Blood Cell % 0 /100 WBC (0); Platelet Count 124 Thou/mm3 (140-440); RDW Standard Deviation 59.5 fL (35.1-43.9); Red Blood Count 3.34 Miln/mm3 (4.50-5.90); Reticulocyte % (Auto) 2.8 % (0.5-1.5); Reticulocyte Absolute Auto 93.9 Biln/L (25.0-75.0); Reticulocyte Hgb Content 37.1 pg (28.0-35.0)
[2024-09-30 17:45] LABS: Alanine Aminotransferase 31 U/L (10-49); Albumin, Serum 3.8 gm/dL (3.5-5.0); Albumin/Globulin Ratio 0.9 (1.2-2.2); Alkaline Phosphatase 92 U/L (46-116); Anion Gap 10 (7-16); Aspartate Amino Transferase 39 U/L (0-34); BUN/Creatinine Ratio 11 Ratio (12-20); Bilirubin,Total 0.6 mg/dL (0.3-1.2); Blood Urea Nitrogen 10 mg/dL (9-23); Calcium 8.9 mg/dL (8.3-10.6); Calcium (Corrected) 9.1 mg/dL (8.5-10.1); Carbon Dioxide 24.2 mMol/L (20.0-31.0); Chloride 106 mMol/L (98-107); Creatinine (Component) 0.9 mg/dL (0.6-1.3); Globulin 4.2 gm/dL (2.3-3.5); Glucose 92 mg/dL (74-106); Osmolality,Calculated 278 (275-295); Potassium 3.8 mMol/L (3.4-5.1); Sodium 140 mMol/L (136-145); Total Protein 8.0 gm/dL (5.7-8.2); eGFR > 60 See Note
[2024-09-30 18:09] LABS: White Blood Count 2.6 Thou/mm3 (3.8-10.6)
[2024-09-30 19:58] LABS: Ferritin 197 ng/mL (10.5-307.3); Iron 110 mcg/dL (65-175); Percent Iron Saturation 37 % (20-55); Total Iron Binding Capacity 291 mcg/dL (250-425); Unsaturated Iron Binding 181 (225-295)
[2024-09-30 20:01] LABS: AFP Non-Pregnant 3.70 ng/mL (<8.10); Folate 12.22 ng/mL (>5.38); Vitamin B12 701 pg/mL (211-911)
== END | disposition home or self-care (01) ==
LOC: SCTO 16:31
PROVIDERS: PCP Internal Medicine; Referring Provider Nurse Practitioner Family; Visit Provider Nurse Practitioner Family
DX: R79.0 Abnormal level of blood mineral (principal)
CPT/HCPCS: 36415; 80053; 82105; 82607; 82728; 82746; 83540; 83550; 85025; 85046

== ENCOUNTER 2024-10-06 15:37 | Outpatient (RCR) | payer BC, SELFPAY | END 2024-10-16 23:59 | disposition home or self-care (01) | LOC: SCTC 15:37 | PROVIDERS: PCP Internal Medicine; Referring Provider Nurse Practitioner Family; Visit Provider Nurse Practitioner Family | DX: D64.9 Anemia, unspecified (principal); D69.6 Thrombocytopenia, unspecified; K70.30 Alcoholic cirrhosis of liver without ascites; R53.83 Other fatigue; R68.82 Decreased libido | CPT/HCPCS: 99212; G0463 ==

== ENCOUNTER → 2024-10-08 | Outpatient (CLI) | payer BC, SELFPAY ==
--- NOTE | 2024-10-08 10:30 | XR_ITS ---
Examination: Ultrasound liver Elastography Date and time: October 08, 2024 1042 hours INDICATIONS: Diagnosis cirrhosis of the liver 6 months ago. FINDINGS: Liver 18.7 cm with fatty infiltration, lobular margins Normal hepatopedal portal venous flow Patent hepatic veins Tissues stiffness average 1.8 m/s in the normal range IMPRESSION: Normal tissue stiffness average
== END | disposition home or self-care (01) ==
PROVIDERS: PCP Internal Medicine; Referring Provider Internal Medicine Hematology & Oncology; Visit Provider Internal Medicine Hematology & Oncology
DX: R79.0 Abnormal level of blood mineral (principal)
CPT/HCPCS: 76981

== ENCOUNTER → 2024-10-16 | Outpatient (CLI) | payer BC, SELFPAY ==
--- NOTE | 2024-10-16 15:15 | XR_ITS ---
Examination: MRI abdomen with intravenous contrast. MRI abdomen without intravenous contrast. Date and time of exam: October 16, 2024 1610 hours MEDICATIONS: Diagnoses cirrhosis fatty liver worsening abdominal pain for months Technique: Multiple axial, sagittal and coronal sections of the abdomen obtained. Transverse images, TR 6020, TE 107. T1 weighted transverse images, TR 582, TE 9.5. T2-weighted sagittal images, TR 4000, TE 105. T2-weighted sagittal images, TR 4000, TE 5. Coronal images, TR 4210, TE 107. Axial and coronal images are obtained post 20 cc intravenous injection, gadolinium. Findings: SIR methods, relative signal of liver and paravertebral muscle need for axial 2-dimensional sections during breath hold with a repetition time of 120 ms and flip angle of 20 degrees to minimize T1 weighting, TE 04 and 14 ms This patient needs to return for the specialized images to quantify iron content in the liver The current images demonstrate irregular liver contour, no focal liver lesions on the precontrast images and no abnormal enhancing lesions on the postcontrast images Splenomegaly 19 cm No extrahepatic biliary tract dilatation No ascites No pancreatic mass or dilated pancreatic duct Gallbladder is not distended IMPRESSION: This patient needs to return at no charge for the specific liver imaging sequences described above
== END | disposition home or self-care (01) ==
LOC: SMRI 15:02
PROVIDERS: PCP Internal Medicine; Referring Provider Internal Medicine Hematology & Oncology; Visit Provider Internal Medicine Hematology & Oncology
DX: R79.0 Abnormal level of blood mineral (principal)
CPT/HCPCS: 74183; A9579

== ENCOUNTER → 2024-10-17 | Outpatient (BNVA) | payer BC, SELFPAY | END | disposition home or self-care (01) | PROVIDERS: PCP Internal Medicine; Referring Provider Internal Medicine; Visit Provider Urology | DX: N40.1 Benign prostatic hyperplasia with lower urinary tract symptoms (principal); N13.8 Other obstructive and reflux uropathy; R97.20 Elevated prostate specific antigen [PSA]; N52.9 Male erectile dysfunction, unspecified; E66.01 Morbid (severe) obesity due to excess calories; Z71.3 Dietary counseling and surveillance; Z68.39 Body mass index [BMI] 39.0-39.9, adult; G47.30 Sleep apnea, unspecified; K21.9 Gastro-esophageal reflux disease without esophagitis | CPT/HCPCS: 81003; 99212; G0463 ==

== ENCOUNTER 2024-11-21 09:45 | Day surgery (SDC) | payer BC, SELFPAY ==
[2024-11-20 15:14] VITALS: BMI 39.0
[2024-11-21] VITALS (9 sets, daily range): BP systolic 121–177; BP diastolic 75–119; PULSE 69–88; RESP 17–20; TEMP 36.2–36.8; O2SAT 92–100; BMI 39.0
[2024-11-21] MEDS: BENZOCAINE 20% (Hurricaine) SPRAY 1 DOSE TOP (11:24)
[2024-11-21] MEDS: SODIUM CHLORIDE 0.9% 500 ML 500 ML 20 ML IV (11:24)
[2024-11-21] MEDS: fentaNYL CIT INJ 50 mCg/ML AMP 2ML (ASD USE ONLY) IVP (11:29)
[2024-11-21] MEDS: MIDAZOLAM INJ 1 MG/ML VIAL 2 ML (ASD USE ONLY) 2 MG IVP (11:33)
--- NOTE | 2024-11-21 11:39 | SUR.PHASEII ---
1139: pt received from OR via [facility]. received report from [facility]. pt sleeping but arousable easily when called his name. no s/s of resp. distress or discomfort. no s/s of pain or discomfort.
--- NOTE | 2024-11-21 11:57 | SUR.PHASEII ---
1157: able to drink soda without any difficulty.
--- NOTE | 2024-11-21 12:01 | SUR.PHASEII ---
1201: ambulate to restroom without any issues.
--- NOTE | 2024-11-21 12:06 | SUR.PHASEII ---
1206: pt sitting down in the wheelchair ready for disharge, waiting for transportation. pt alert and oriented. drinking soda without any difficulty.
--- NOTE | 2024-11-21 12:20 | SUR.PHASEII ---
1220: pt discharge to home via wheelchair. pt alert and oriented. no s/s of resp. distress or discomfort. no s/s of pain or discomfort. discharge instructions given to Leatha-mother and pt, verbalizes understanding. all belongings brought given back to patient.
== END 2024-11-21 12:20 | disposition home or self-care (01) ==
PROVIDERS: PCP Internal Medicine; Referring Provider Specialist; Visit Provider Specialist
PROC: (CPT 43239; principal; 2024-11-21 12:30)
DX: K76.6 Portal hypertension (principal); K29.70 Gastritis, unspecified, without bleeding; I85.10 Secondary esophageal varices without bleeding; D69.6 Thrombocytopenia, unspecified; R94.5 Abnormal results of liver function studies; K82.8 Other specified diseases of gallbladder
CPT/HCPCS: 43244; A4217; A4649; J1200; J2250; J3010; J7999; A9270

== ENCOUNTER → 2024-12-04 | Outpatient (CLI) | payer BC, SELFPAY ==
[2024-12-04 16:30] LABS: Basophils # (Auto) 0.0 Thou/mm3 (0.0-0.2); Basophils % (Auto) 0 % (0-2.5); Eosinophils # (Auto) 0.0 Thou/mm3 (0.0-0.5); Eosinophils % (Auto) 0 % (0-10); Hematocrit 32.3 % (41.0-53.0); Hemoglobin 10.8 g/dL (13.5-16.0); Immature Granulocytes Auto 0.02 Thou/mm3 (0.00-0.00); Immature Reticulocyte Fraction 24.0 % (2.3-13.4); Lymphocytes # (Auto) 0.5 Thou/mm3 (1.0-4.8); Lymphocytes % (Auto) 19 % (10-50); Mean Corpuscular HGB Conc 33.4 g/dl (31.0-37.0); Mean Corpuscular Hemoglobin 32.9 pg (25.0-35.0); Mean Corpuscular Volume 99 fL (80-100); Monocytes # (Auto) 0.2 Thou/mm3 (0.0-0.8); Monocytes % (Auto) 9 % (0-12); Neutrophils # (Auto) 1.9 Thou/mm3 (1.8-7.7); Neutrophils % (Auto) 71 % (37-80); Nucleated Red Blood Cell # 0.00 Thou/mm3 (0.00-0.00); Nucleated Red Blood Cell % 0 /100 WBC (0); Platelet Count 98 Thou/mm3 (140-440); RDW Standard Deviation 58.2 fL (35.1-43.9); Red Blood Count 3.28 Miln/mm3 (4.50-5.90); Reticulocyte % (Auto) 2.5 % (0.5-1.5); Reticulocyte Absolute Auto 83.3 Biln/L (25.0-75.0); Reticulocyte Hgb Content 36.8 pg (28.0-35.0); White Blood Count 2.7 Thou/mm3 (3.8-10.6)
[2024-12-04 16:43] LABS: Alanine Aminotransferase 19 U/L (10-49); Albumin, Serum 3.5 gm/dL (3.5-5.0); Albumin/Globulin Ratio 0.8 (1.2-2.2); Alkaline Phosphatase 90 U/L (46-116); Anion Gap 8 (7-16); Aspartate Amino Transferase 25 U/L (0-34); BUN/Creatinine Ratio 11 Ratio (12-20); Bilirubin,Total 0.7 mg/dL (0.3-1.2); Blood Urea Nitrogen 9 mg/dL (9-23); Calcium 8.6 mg/dL (8.3-10.6); Calcium (Corrected) 9.0 mg/dL (8.5-10.1); Carbon Dioxide 25.7 mMol/L (20.0-31.0); Chloride 104 mMol/L (98-107); Creatinine (Component) 0.8 mg/dL (0.6-1.3); Globulin 4.5 gm/dL (2.3-3.5); Glucose 102 mg/dL (74-106); LDH (Lactate Dehydrogenase) 257 U/L (120-246); Osmolality,Calculated 274 (275-295); Potassium 3.8 mMol/L (3.4-5.1); Sodium 138 mMol/L (136-145); Total Protein 8.0 gm/dL (5.7-8.2); eGFR > 60 See Note
[2024-12-04 16:48] LABS: Ferritin 276 ng/mL (10.5-307.3); Iron 61 mcg/dL (65-175); Percent Iron Saturation 24 % (20-55); Total Iron Binding Capacity 251 mcg/dL (250-425); Unsaturated Iron Binding 190 (225-295)
[2024-12-04 16:49] LABS: AFP Non-Pregnant 2.10 ng/mL (<8.10); Folate 11.98 ng/mL (>5.38); Vitamin B12 1119 pg/mL (211-911)
[2024-12-12 06:32] LABS: Haptoglobin* 46 mg/dL (43-212)
== END | disposition home or self-care (01) ==
LOC: SCTO 15:42
PROVIDERS: PCP Internal Medicine; Referring Provider Nurse Practitioner Family; Visit Provider Nurse Practitioner Family
DX: R79.0 Abnormal level of blood mineral (principal)
CPT/HCPCS: 36415; 80053; 82105; 82607; 82728; 82746; 83010; 83540; 83550; 83615; 85025; 85046

== ENCOUNTER 2024-12-08 15:38 | Outpatient (RCR) | payer BC, SELFPAY ==
--- NOTE | 2024-12-14 23:32 | CTCFLWUP_ITS ---
Patient: CHUCKIE LANDIS : 1985 Page 2 of 4 FOLLOW UP NOTE DATE OF SERVICE: 12/08/2024 NAME: CHUCKIE LANDIS ACCOUNT: [id number] : 1985 AGE: 39 INTERVAL HISTORY: Chuckie Landis, a 39-year-old male with history of liver disease and hyperferritinemia, presented for follow-up of low blood count, fatigue, and 20- pound weight loss. Recent bone marrow biopsy revealed myelodysplastic syndrome with cytogenetic abnormality and hypercellular marrow with trilineage dysplasia. Patient was referred to [facility] for hematology consultation and to Dr. Mila Kemp in [place] for bone marrow biopsy review. Wegovy was noted for recent weight loss. Protective equipment was recommended when handling workplace chemicals. ONCOLOGY HISTORY: DIAGNOSIS: Low blood cell count, fatigue DATE OF DIAGNOSIS: 09/17/2017 STAGE/TNM: No cancer diagnosis TREATMENT HISTORY: Care?Plan Start?Date Cycle Day Intent HISTORY OF PRESENT ILLNESS: Subjective Chief Complaint Follow-up for abnormal MRI and bone biopsy results, fatigue, 20 pound weight loss History of Present Illness Chuckie Landis, a 39-year-old male with a history of liver disease and iron overload, presents for follow-up of low blood count and fatigue. The patient reports a 20-pound weight loss over the last 8 weeks with the use of Wegovy. He has made significant lifestyle changes, including quitting alcohol consumption. 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 He has a history of hyperferritinemia and has undergone multiple therapeutic phlebotomies in the past. The patient recently had an MRI on October 16, 2024, and a bone marrow biopsy, the results of which are pending review. The patient has upcoming appointments with specialists, including a liver specialist at [facility] on December 31 and a recruiting manager, Dr. Henning, in [place]. He mentions having already seen Dr. Henning, who wants to review his test results. Medications and Supplements - Wegovy - Used for weight loss. Patient lost 20 pounds. - Ozempic - Suggested for future use, not currently taking. Review of Systems General: Positive for fatigue, weight loss. Objective Laboratory, Imaging, and Diagnostic Test Results - MRI (10/16/2024): Results not specified - Bone marrow biopsy (date not specified): - Findings: Hypercellular marrow with trilineage dysplasia - Diagnosis: Myelodysplastic syndrome (MDS) with cytogenetic abnormality - Previous bone marrow biopsy (2022): Normal results OTHER MEDICAL HISTORY/CONDITIONS: FAMILY HISTORY: SOCIAL HISTORY: MEDICATIONS: 1. omeprazole - 20 mg 20 mg Daily Medications Last Reconciled by Pascale Del Valle LVN on 12/08/2024 ALLERGIES: No Known Drug Allergies REVIEW OF SYSTEMS: A complete 14-point review of systems was performed and is negative except as noted in interval history. PHYSICAL EXAMINATION: VITAL SIGNS: Temperature?98.3, B/P?123/79 Weight?274?lbs PAIN: 0 - No pain ECOG Performance Status: 0 - Asymptomatic and fully active GENERAL APPEARANCE: Appears well, in no apparent distress, appropriately interactive. HEENT: Normocephalic, no temporal wasting, normal conjunctiva, no scleral icterus, normal hearing, lips without lesions, neck normal range of motion. CARDIOVASCULAR: Not assessed. PULMONARY: Normal respiratory effort, no respiratory distress or use of accessory muscles, speaking in full sentences, no tachypnea. EXTREMITIES: No pedal edema or cyanosis. SKIN: Normal skin appearance. NEUROLOGIC: Alert and oriented x4. PSHYCHIATRIC: Appropriate affect, mood normal, behavior normal, intact thought and speech. LABORATORY DATA: I have personally reviewed and interpreted each of the patient?s relevant lab tests, abnormal findings are below: Date 12/04/24 12/08/24 ??WHITE?BLOOD?COUNT?(Thou/mm3) 2.7?L 2.5?L ??RED?BLOOD?COUNT?(Miln/mm3) 3.28?L 3.25?L ??HEMOGLOBIN?(gm/dl) 10.8?L 11.0?L ??HEMATOCRIT?(%) 32.3?L 32.4?L ??PLATELET?COUNT?(Thou/mm3) 98?L 122?L ??NEUTROPHILS?%,?AUTO?(%) 71 74 ??LYMPH?%,?AUTO?(%) 19 17 ??NEUTROPHILS,?AUTO?(Thou/mm3) 1.9 1.8 ??GLUCOSE,RANDOM?(mg/dL) 102 94 ??BLOOD?UREA?NITROGEN?(mg/dL) 9 9 ??CREATININE?(mg/dL) 0.80 0.90 ??SODIUM?(mmol/L) 138 139 ??POTASSIUM?(mmol/L) 3.8 4.0 ??CHLORIDE?(mmol/L) 104 105 ??CrCl?(CandG)?(ml/min) 164.37 142.78 ??AST/SGOT?(Unit/L) 25 31 ??ALT/SGPT?(Unit/L) 19 22 ??ALKALINE?PHOSPHATASE?(Unit/L) 90 86 ??BILIRUBIN,?TOTAL?(mg/dL) 0.7 0.6 ??PROTEIN?TOTAL?(gm/dl) 8.0 8.1 ??ALBUMIN,?SERUM?(gm/dl) 3.5 3.5 ??GLOBULIN?(gm/dl) 4.5?H 4.6?H ??ALBUMIN/GLOBULIN?RATIO 0.8?L 0.8?L ??CALCIUM,?SERUM?(mg/dL) 8.6 8.9 ??CALCIUM?SERUM?(CORRECTED)?(mg/dL) 9.0 9.3 ASSESSMENT/PLAN: Assessment and Plan Chuckie Landis, a 39-year-old male with a history of liver disease and hyperferritinemia, presents with low blood count and fatigue. Recent bone marrow biopsy reveals myelodysplastic syndrome (MDS). Myelodysplastic Syndrome (MDS) Assessment: Recent bone marrow biopsy on 10/16/2024 revealed myelodysplastic syndrome with cytogenetic abnormality. The marrow is hypercellular with trilineage dysplasia. This diagnosis is unusual for a 39-year-old patient, as MDS typically affects older individuals. 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 A previous bone marrow biopsy in 2022 was reported as normal, suggesting a recent onset of the condition. The current presentation includes low blood count and fatigue. Given the patient's young age and the potential for progression to leukemia, this case requires urgent attention and specialized care. Plan: - Referral to [facility] for hematology consultation (appointment scheduled for December 31, 2024) - Referral to Dr. Henning in [place] for hematology consultation and bone marrow biopsy review - Consider repeat bone marrow biopsy at a different facility for confirmation - Recommend wearing protective equipment (mask) when handling chemicals at work - Discuss potential need for bone marrow transplant as a curative option - Consider weight management strategies (e.g., Ozempic) to improve candidacy for potential treatments Liver Disease cirrhosis with Hyperferritinemia Assessment: Patient has a history of liver disease with hyperferritinemia. Previous workup included negative HFE testing for hemochromatosis and multiple therapeutic phlebotomies. An ultrasound-guided liver biopsy was performed in the past. The patient has made lifestyle changes, including quitting alcohol consumption, which has led to a 20-pound weight loss. Plan: - Continue follow-up with [facility] liver specialist - Maintain lifestyle modifications, including alcohol abstinence ORDERS: Order # Description [id number] MRI RETURN TO CLINIC: I reviewed the diagnosis, prognosis, and recommended treatment/procedure options with the patient (and/or their legal registered representative), including the potential benefits, risks, side effects and alternative therapies. We also discussed the option of no treatment and the possibility of clinical trial participation, if applicable. All questions were addressed, and they demonstrated understanding. They provided informed consent to proceed with the proposed plan of care. BILLING AND COMPLIANCE: I reviewed external records from providers outside my specialty as summarized above. I spent a total of 50 minutes on this patient?s care on the day of their visit excluding time spent related to any billed procedures. This time includes time spent with the patient as well as time spent documenting in the medical record, reviewing patients records and tests, obtaining history, placing orders, communicating with other healthcare professionals, counseling the patient, family or caregiver, and/or care coordination for the diagnoses above. Electronically Signed by: Noah Morse MD T: 11:30 PM CC: Rod?Lacey? PCP: Rod Rahman Referring: Rod Rahman This document was completed utilizing speech recognition software. Grammatical errors, random word insertions, pronoun errors, and incomplete sentences are an occasional consequence of this system due to software limitations, ambient noise, and hardware issues. Any formal questions or concerns about the content, text or information contained within the body of this dictation should be directly addressed to the provider for clarification.
== END 2024-12-16 23:59 | disposition home or self-care (01) ==
LOC: SCTC 15:38
PROVIDERS: PCP Internal Medicine; Referring Provider Internal Medicine; Visit Provider Internal Medicine Hematology & Oncology
DX: D46.9 Myelodysplastic syndrome, unspecified (principal); K76.9 Liver disease, unspecified; R53.83 Other fatigue; R63.4 Abnormal weight loss; Z68.38 Body mass index [BMI] 38.0-38.9, adult
CPT/HCPCS: 99212; G0463

== ENCOUNTER → 2024-12-08 | Outpatient (CLI) | payer BC, SELFPAY ==
[2024-12-08 16:56] LABS: Basophils # (Auto) 0.0 Thou/mm3 (0.0-0.2); Basophils % (Auto) 0 % (0-2.5); Eosinophils # (Auto) 0.0 Thou/mm3 (0.0-0.5); Eosinophils % (Auto) 0 % (0-10); Hematocrit 32.4 % (41.0-53.0); Hemoglobin 11.0 g/dL (13.5-16.0); Immature Granulocytes Auto 0.01 Thou/mm3 (0.00-0.00); Lymphocytes # (Auto) 0.4 Thou/mm3 (1.0-4.8); Lymphocytes % (Auto) 17 % (10-50); Mean Corpuscular HGB Conc 34.0 g/dl (31.0-37.0); Mean Corpuscular Hemoglobin 33.8 pg (25.0-35.0); Mean Corpuscular Volume 100 fL (80-100); Monocytes # (Auto) 0.2 Thou/mm3 (0.0-0.8); Monocytes % (Auto) 8 % (0-12); Neutrophils # (Auto) 1.8 Thou/mm3 (1.8-7.7); Neutrophils % (Auto) 74 % (37-80); Nucleated Red Blood Cell # 0.00 Thou/mm3 (0.00-0.00); Nucleated Red Blood Cell % 0 /100 WBC (0); Platelet Count 122 Thou/mm3 (140-440); RDW Standard Deviation 59.8 fL (35.1-43.9); Red Blood Count 3.25 Miln/mm3 (4.50-5.90); White Blood Count 2.5 Thou/mm3 (3.8-10.6)
[2024-12-08 17:10] LABS: Alanine Aminotransferase 22 U/L (10-49); Albumin, Serum 3.5 gm/dL (3.5-5.0); Albumin/Globulin Ratio 0.8 (1.2-2.2); Alkaline Phosphatase 86 U/L (46-116); Anion Gap 8 (7-16); Aspartate Amino Transferase 31 U/L (0-34); BUN/Creatinine Ratio 10 Ratio (12-20); Bilirubin,Total 0.6 mg/dL (0.3-1.2); Blood Urea Nitrogen 9 mg/dL (9-23); Calcium 8.9 mg/dL (8.3-10.6); Calcium (Corrected) 9.3 mg/dL (8.5-10.1); Carbon Dioxide 26.0 mMol/L (20.0-31.0); Chloride 105 mMol/L (98-107); Creatinine (Component) 0.9 mg/dL (0.6-1.3); Globulin 4.6 gm/dL (2.3-3.5); Glucose 94 mg/dL (74-106); Osmolality,Calculated 276 (275-295); Potassium 4.0 mMol/L (3.4-5.1); Sodium 139 mMol/L (136-145); Total Protein 8.1 gm/dL (5.7-8.2); eGFR > 60 See Note
== END | disposition home or self-care (01) ==
LOC: COPL 16:27
PROVIDERS: PCP Internal Medicine; Referring Provider Internal Medicine; Visit Provider Internal Medicine
DX: D61.818 Other pancytopenia (principal); K74.60 Unspecified cirrhosis of liver
CPT/HCPCS: 36415; 80053; 85025

== ENCOUNTER → 2025-02-05 | Outpatient (CLI) | payer BC, SELFPAY ==
[2025-02-05 17:31] LABS: Basophils # (Auto) 0.0 Thou/mm3 (0.0-0.2); Basophils % (Auto) 0 % (0-2.5); Eosinophils # (Auto) 0.0 Thou/mm3 (0.0-0.5); Eosinophils % (Auto) 0 % (0-10); Hematocrit 34.0 % (41.0-53.0); Hemoglobin 11.3 g/dL (13.5-16.0); Immature Granulocytes Auto 0.01 Thou/mm3 (0.00-0.00); Lymphocytes # (Auto) 0.5 Thou/mm3 (1.0-4.8); Lymphocytes % (Auto) 22 % (10-50); Mean Corpuscular HGB Conc 33.2 g/dl (31.0-37.0); Mean Corpuscular Hemoglobin 32.9 pg (25.0-35.0); Mean Corpuscular Volume 99 fL (80-100); Monocytes # (Auto) 0.2 Thou/mm3 (0.0-0.8); Monocytes % (Auto) 9 % (0-12); Neutrophils # (Auto) 1.6 Thou/mm3 (1.8-7.7); Neutrophils % (Auto) 69 % (37-80); Nucleated Red Blood Cell # 0.00 Thou/mm3 (0.00-0.00); Nucleated Red Blood Cell % 0 /100 WBC (0); Platelet Count 82 Thou/mm3 (140-440); RDW Standard Deviation 59.9 fL (35.1-43.9); Red Blood Count 3.43 Miln/mm3 (4.50-5.90); White Blood Count 2.3 Thou/mm3 (3.8-10.6)
[2025-02-05 17:42] LABS: Alanine Aminotransferase 33 U/L (10-49); Albumin, Serum 4.0 gm/dL (3.5-5.0); Albumin/Globulin Ratio 1.0 (1.2-2.2); Alkaline Phosphatase 90 U/L (46-116); Anion Gap 7 (7-16); Aspartate Amino Transferase 36 U/L (0-34); BUN/Creatinine Ratio 11 Ratio (12-20); Bilirubin,Total 0.6 mg/dL (0.3-1.2); Blood Urea Nitrogen 11 mg/dL (9-23); Calcium 8.7 mg/dL (8.3-10.6); Calcium (Corrected) 8.7 mg/dL (8.5-10.1); Carbon Dioxide 26.6 mMol/L (20.0-31.0); Chloride 106 mMol/L (98-107); Creatinine (Component) 1.0 mg/dL (0.6-1.3); Globulin 4.0 gm/dL (2.3-3.5); Glucose 94 mg/dL (74-106); Osmolality,Calculated 278 (275-295); Potassium 4.0 mMol/L (3.4-5.1); Sodium 140 mMol/L (136-145); Total Protein 8.0 gm/dL (5.7-8.2); eGFR > 60 See Note
== END | disposition home or self-care (01) ==
LOC: COPL 16:40
PROVIDERS: PCP Internal Medicine; Referring Provider Student in an Organized Health Care Education/Training Program; Visit Provider Student in an Organized Health Care Education/Training Program
DX: K72.90 Hepatic failure, unspecified without coma (principal); K74.60 Unspecified cirrhosis of liver
CPT/HCPCS: 36415; 80053; 85025

== ENCOUNTER 2025-02-20 11:30 | Day surgery (SDC) | payer BC, SELFPAY ==
[2025-02-19 10:36] VITALS: BMI 38.5
[2025-02-20] VITALS (9 sets, daily range): BP systolic 109–135; BP diastolic 58–97; PULSE 76–96; RESP 15–20; TEMP 36.2–36.8; O2SAT 98–100; BMI 36.1
[2025-02-20] MEDS: BENZOCAINE 20% (Hurricaine) SPRAY 1 DOSE TOP (13:38)
[2025-02-20] MEDS: SODIUM CHLORIDE 0.9% 500 ML 500 ML 20 ML IV (13:38)
[2025-02-20] MEDS: fentaNYL CIT INJ 50 mCg/ML AMP 2ML (ASD USE ONLY) IVP (13:41)
[2025-02-20] MEDS: MIDAZOLAM INJ 1 MG/ML VIAL 2 ML (ASD USE ONLY) 2 MG IVP (13:41)
== END 2025-02-20 14:26 | disposition home or self-care (01) ==
PROVIDERS: PCP Internal Medicine; Referring Provider Specialist; Visit Provider Specialist
PROC: (CPT 43239; principal; 2025-02-20 12:15)
DX: K76.6 Portal hypertension (principal); K70.9 Alcoholic liver disease, unspecified; D69.6 Thrombocytopenia, unspecified; I85.11 Secondary esophageal varices with bleeding; K29.71 Gastritis, unspecified, with bleeding
CPT/HCPCS: 43244; A4649; J1200; J2250; J3010; J7999; A9270

== ENCOUNTER → 2025-02-28 | Outpatient (CLI) | payer BC, SELFPAY ==
--- NOTE | 2025-02-28 10:30 | XR_ITS ---
Examination: MRI abdomen without contrast Date and time of exam: February 28, 2025, 1033 hours, comparison October 16, 2024 INDICATIONS: Diagnosis fatty infiltration of the liver, cirrhosis, clinical history abnormal level of blood minerals, repeat study, requested MRI abdomen October 16, 2024 Technique: Multiple MRI axial and sagittal sections lumbar spine. Sagittal T2-weighted images, TR 3500, TE 118 T1 weighted transverse sections, TR 688 T8.5, T2-weighted sagittal sections T1 weighted sagittal sections TR 621, TE 30 T2 axial sections, TR 4, 190, TE 84. Findings: Signal intensity ratio techniques in abdomen magnetic imaging are not available on the current scanner, this software must be purchased as an add-on future, radiology management is aware of this request Current images demonstrate cirrhosis, liver markedly irregular in contour, no intrahepatic biliary tract dilatation, no focal liver lesions Massive splenomegaly 20 cm No gallstones, gallbladder wall is not thickened Normal common hepatic common bile duct No pancreatic mass or peripancreatic edema, no dilated pancreatic duct Aorta normal size No ascites No abdominal lymphadenopathy IMPRESSION: Cirrhosis, no focal liver lesions or intrahepatic biliary tract dilatation Massive splenomegaly Normal gallbladder Normal common hepatic common bile duct
== END | disposition home or self-care (01) ==
LOC: SMRI 10:00
PROVIDERS: PCP Internal Medicine; Referring Provider Nurse Practitioner Family; Visit Provider Nurse Practitioner Family
DX: K74.60 Unspecified cirrhosis of liver (principal); R16.1 Splenomegaly, not elsewhere classified
CPT/HCPCS: 74181

== ENCOUNTER → 2025-03-10 | Outpatient (CLI) | payer BC, SELFPAY ==
[2025-03-10 17:29] LABS: Basophils # (Auto) 0.0 Thou/mm3 (0.0-0.2); Basophils % (Auto) 1 % (0-2.5); Eosinophils # (Auto) 0.0 Thou/mm3 (0.0-0.5); Eosinophils % (Auto) 0 % (0-10); Hematocrit 32.8 % (41.0-53.0); Hemoglobin 11.0 g/dL (13.5-16.0); Immature Granulocytes Auto 0.01 Thou/mm3 (0.00-0.00); Lymphocytes # (Auto) 0.4 Thou/mm3 (1.0-4.8); Lymphocytes % (Auto) 30 % (10-50); Mean Corpuscular HGB Conc 33.5 g/dl (31.0-37.0); Mean Corpuscular Hemoglobin 33.0 pg (25.0-35.0); Mean Corpuscular Volume 99 fL (80-100); Monocytes # (Auto) 0.1 Thou/mm3 (0.0-0.8); Monocytes % (Auto) 9 % (0-12); Neutrophils # (Auto) 0.9 Thou/mm3 (1.8-7.7); Neutrophils % (Auto) 60 % (37-80); Nucleated Red Blood Cell # 0.00 Thou/mm3 (0.00-0.00); Nucleated Red Blood Cell % 0 /100 WBC (0); RDW Standard Deviation 60.5 fL (35.1-43.9); Red Blood Count 3.33 Miln/mm3 (4.50-5.90)
[2025-03-10 17:34] LABS: INR 1.2 (0.9-1.3); Prothrombin Time 12.4 Seconds (9.0-12.2)
[2025-03-10 17:45] LABS: Platelet Count 77 Thou/mm3 (140-440)
[2025-03-10 17:46] LABS: AFP Non-Pregnant 2.70 ng/mL (<8.10)
[2025-03-10 17:48] LABS: Alanine Aminotransferase 29 U/L (10-49); Albumin, Serum 3.8 gm/dL (3.5-5.0); Albumin/Globulin Ratio 0.9 (1.2-2.2); Alkaline Phosphatase 87 U/L (46-116); Anion Gap 12 (7-16); Aspartate Amino Transferase 31 U/L (0-34); BUN/Creatinine Ratio 9 Ratio (12-20); Bilirubin,Total 0.6 mg/dL (0.3-1.2); Blood Urea Nitrogen 8 mg/dL (9-23); Calcium 8.5 mg/dL (8.3-10.6); Calcium (Corrected) 8.7 mg/dL (8.5-10.1); Carbon Dioxide 24.5 mMol/L (20.0-31.0); Chloride 106 mMol/L (98-107); Creatinine (Component) 0.9 mg/dL (0.6-1.3); Globulin 4.4 gm/dL (2.3-3.5); Glucose 102 mg/dL (74-106); Osmolality,Calculated 281 (275-295); Potassium 3.7 mMol/L (3.4-5.1); Sodium 142 mMol/L (136-145); Total Protein 8.2 gm/dL (5.7-8.2); eGFR > 60 See Note
[2025-03-10 17:55] LABS: White Blood Count 1.5 Thou/mm3 (3.8-10.6)
[2025-03-10 18:05] LABS: Slide Review Platelets confirmed
[2025-03-10 18:08] LABS: Path Review Blood Smear Sent to Pathologist
== END | disposition home or self-care (01) ==
LOC: COPL 16:19
PROVIDERS: PCP Internal Medicine; Referring Provider Student in an Organized Health Care Education/Training Program; Visit Provider Student in an Organized Health Care Education/Training Program
DX: K72.90 Hepatic failure, unspecified without coma (principal); K74.60 Unspecified cirrhosis of liver
CPT/HCPCS: 36415; 80053; 82105; 85025; 85610